=== PATIENT | male | born 1950 | race Caucasian/White ===

== ENCOUNTER 2017-07-14 11:27 | Inpatient (IN) ==
[2017-07-14] MEDS ORDERED: SODIUM CHLORIDE 0.9% 1,000 ML IV STA (11:54)
[2017-07-14 12:50] LABS: Basophils # 0.1 10*3/uL (0.0-0.2); Basophils % 0.8 % (0.0-0.8); Eosinophils # 0.3 10*3/uL (0.0-0.87); Eosinophils % 3.1 % (0.00-10.9); Hematocrit 39.4 VOL% (42.0-52.0); Hemoglobin 13.2 GM/DL (14.0-18.0); Immature Granulocytes % 0.5 %; Immature Granulocytes Absolute 0.05 #; Lymphocytes # 1.8 10*3/uL (1.4-4.0); Lymphocytes % 15.9 % (21.2-54.2); Mean Corpuscular HGB Conc 33.5 GM/DL (32-36); Mean Corpuscular Hemoglobin 33 PG (27-34); Mean Corpuscular Volume 97.5 FL (87-102); Mean Platelet Volume 9.2 FL (9.6-12.0); Monocytes % 8.6 % (1.7-12.7); Neutrophils # 7.9 10*3/uL (1.4-7.4); Neutrophils % 71.1 % (38.7-73.9); Platelet Count 261 T/CUMM (130-400); Red Blood Count 4.04 MC/CUMM (3.8-5.5); Red Cell Distribution Width 13.9 % (9.3-17.3); White Blood Count 11.1 T/CUMM (4-12)
[2017-07-14 13:03] LABS: INR 1.1; PT Patient Result 11.4 SECS; Partial Thromboplastin Time 26.8 SECS (0-40)
[2017-07-14 13:10] LABS: Apearance,Urine CLEAR (Clear); Bilirubin,Urine Negative (Negative); Blood, Urine Negative (Negative); Glucose,Urine (UA) Negative (Negative); Hyaline Casts,Urine 2 /LPF (0-3); Ketones,Urine Negative (Negative); Mucus,Urine Moderate /LPF (Occasional); Nitrite,Urine Negative (Negative); Protein,Urine Negative; RBC,Urine <1 /HPF (0-4); Squamous Epithelial Cell,Urine Occasional /HPF (0-10); Urine Color Amber (Yellow); Urine Specific Gravity 1.014 (1.001-1.035); WBC,Urine 1 /HPF (0-6)
[2017-07-14 13:26] LABS: Alanine Aminotransferase 18 U/L (16-61); Albumin 2.6 G/DL (3.4-5.0); Alkaline Phosphatase 127 U/L (45-117); Aspartate Amino Transferase 25 U/L (0-37); Blood Urea Nitrogen 7 MG/DL (7-18); Glucose 82 MG/DL (74-106); Osmolality,Calculated 277.3 MOS/KG (273-304); Potassium 3.2 MMOL/L (3.5-5.1); Sodium 141 MMOL/L (136-145); Total Protein 6.2 G/DL (6.4-8.3); Troponin I Only < 0.015 NG/ML (0.00-0.045)
[2017-07-14] MEDS ORDERED: THIAMINE 200 MG/2 ML VIAL IM STA (14:11)
[2017-07-14] MEDS ORDERED: THIAMINE 200 MG/2 ML VIAL ONE (14:21)
[2017-07-14 14:41] LABS: Ammonia 41 UMOL/L (11-32)
[2017-07-14] MEDS ORDERED: KETOROLAC 60 MG/2 ML VIAL IM ONE (15:13)
[2017-07-14] MEDS ORDERED: GLUCAGON 1 MG VIAL IM PRN (17:22)
[2017-07-14] MEDS ORDERED: DEXTROSE 50% 25 GM/50 ML VIAL IV PRN (17:22)
[2017-07-14] MEDS ORDERED: ONDANSETRON 4 MG/2 ML VIAL IV PRN (17:22)
[2017-07-14] MEDS ORDERED: ACETAMINOPHEN 325 MG TABLET PO PRN (17:22)
[2017-07-14] MEDS ORDERED: MECLIZINE 25 MG TABLET PO PRN (17:36)
[2017-07-14] MEDS: SODIUM CHLORIDE 0.9% 1,000 ML IV SCH (18:07)
[2017-07-14] MEDS: INSULIN LISPRO 100 UNIT/ML SUBCUT SCH ×2 (18:07→20:46)
[2017-07-14 18:17] LABS: Barbiturates Screen,Urine Negative (Negative); Benzodiazepines Screen,Urine Negative (Negative); Cannabinoid Screen,Urine Positive (Negative); Opiate Screen,Urine Negative (Negative); Phencyclidine Screen,Urine Negative (Negative)
[2017-07-14 19:06] LABS: Folate 6.1 NG/ML (5.4-24.0)
[2017-07-14] MEDS: DOCUSATE SODIUM 100 MG CAPSULE PO SCH (20:45)
[2017-07-14] MEDS: GABAPENTIN 300 MG CAPSULE PO SCH (20:45)
[2017-07-14] MEDS: FERROUS SULFATE 325 MG TABLET PO SCH (20:45)
[2017-07-14] MEDS ORDERED: POTASSIUM CHLORIDE 20 MEQ TABLET PO SCH (21:00)
[2017-07-15] MEDS: SODIUM CHLORIDE 0.9% 1,000 ML IV SCH ×3 (06:07→21:07)
[2017-07-15 06:59] LABS: Basophils # 0.1 10*3/uL (0.0-0.2); Basophils % 0.8 % (0.0-0.8); Eosinophils # 0.4 10*3/uL (0.0-0.87); Eosinophils % 4.8 % (0.00-10.9); Hematocrit 33.8 VOL% (42.0-52.0); Hemoglobin 11.5 GM/DL (14.0-18.0); Immature Granulocytes % 0.5 %; Immature Granulocytes Absolute 0.04 #; Lymphocytes # 1.7 10*3/uL (1.4-4.0); Lymphocytes % 21.7 % (21.2-54.2); Mean Corpuscular Hemoglobin 33 PG (27-34); Mean Corpuscular Volume 96.8 FL (87-102); Mean Platelet Volume 9.4 FL (9.6-12.0); Monocytes # 0.7 10*3/uL (0.11-0.8); Monocytes % 8.7 % (1.7-12.7); Neutrophils # 4.9 10*3/uL (1.4-7.4); Neutrophils % 63.5 % (38.7-73.9); Platelet Count 216 T/CUMM (130-400); Red Blood Count 3.49 MC/CUMM (3.8-5.5); Red Cell Distribution Width 13.9 % (9.3-17.3); White Blood Count 7.8 T/CUMM (4-12)
[2017-07-15 07:41] LABS: Albumin 2.2 G/DL (3.4-5.0); Bilirubin,Total 1.3 MG/DL (0.2-1.0); Calcium 8.1 MG/DL (8.5-10.1); Osmolality,Calculated 284.7 MOS/KG (273-304); Potassium 3.2 MMOL/L (3.5-5.1); Total Protein 4.9 G/DL (6.4-8.3)
[2017-07-15] MEDS: INSULIN LISPRO 100 UNIT/ML SUBCUT SCH ×4 (08:05→21:54)
[2017-07-15] MEDS: LOSARTAN/HCTZ 50-12.5 MG TABLET PO SCH (08:52)
[2017-07-15] MEDS: POTASSIUM CHLORIDE 20 MEQ TABLET PO SCH ×3 (08:52→21:08)
[2017-07-15] MEDS: CYANOCOBALAMIN 500 MCG TABLET PO SCH (08:52)
[2017-07-15] MEDS: CELECOXIB 200 MG CAPSULE PO SCH (08:52)
[2017-07-15] MEDS: GABAPENTIN 300 MG CAPSULE PO SCH ×4 (08:53→21:08)
[2017-07-15] MEDS: FERROUS SULFATE 325 MG TABLET PO SCH ×2 (08:53→21:08)
[2017-07-15] MEDS: ASPIRIN EC 81 MG TABLET PO SCH (08:53)
[2017-07-15] MEDS: CITALOPRAM 20 MG TABLET PO SCH (08:53)
[2017-07-15] MEDS: PANTOPRAZOLE 40 MG TABLET PO SCH (08:53)
[2017-07-15] MEDS: DOCUSATE SODIUM 100 MG CAPSULE PO SCH ×2 (08:53→21:08)
[2017-07-15] MEDS: SIMVASTATIN 40 MG TABLET PO SCH (08:53)
[2017-07-15] MEDS ORDERED: NON-FORMULARY MEDICATION (Esomeprazole Magnesium [Esomeprazole] 40 MG) PO SCH (09:00)
[2017-07-15 09:38] LABS: INR 1.1; PT Patient Result 11.3 SECS; Partial Thromboplastin Time 26.4 SECS (0-40)
[2017-07-15] MEDS: POTASSIUM CHLORIDE 20 MEQ TABLET PO PRN ×3 (15:13→21:08)
[2017-07-16] MEDS: SODIUM CHLORIDE 0.9% 1,000 ML IV SCH ×4 (06:08→18:23)
[2017-07-16 07:03] LABS: Basophils # 0.1 10*3/uL (0.0-0.2); Basophils % 0.8 % (0.0-0.8); Eosinophils # 0.3 10*3/uL (0.0-0.87); Eosinophils % 3.6 % (0.00-10.9); Hematocrit 36.6 VOL% (42.0-52.0); Hemoglobin 12.1 GM/DL (14.0-18.0); Immature Granulocytes % 0.5 %; Immature Granulocytes Absolute 0.04 #; Lymphocytes # 1.5 10*3/uL (1.4-4.0); Lymphocytes % 17.4 % (21.2-54.2); Mean Corpuscular HGB Conc 33.1 GM/DL (32-36); Mean Corpuscular Hemoglobin 33 PG (27-34); Mean Corpuscular Volume 99.7 FL (87-102); Mean Platelet Volume 9.1 FL (9.6-12.0); Monocytes # 0.7 10*3/uL (0.11-0.8); Monocytes % 7.5 % (1.7-12.7); Neutrophils # 6.1 10*3/uL (1.4-7.4); Neutrophils % 70.2 % (38.7-73.9); Platelet Count 241 T/CUMM (130-400); Red Blood Count 3.67 MC/CUMM (3.8-5.5); Red Cell Distribution Width 13.9 % (9.3-17.3); White Blood Count 8.7 T/CUMM (4-12)
[2017-07-16 07:38] LABS: Calcium 8.7 MG/DL (8.5-10.1); Osmolality,Calculated 285.6 MOS/KG (273-304); Potassium 4.2 MMOL/L (3.5-5.1)
[2017-07-16] MEDS: INSULIN LISPRO 100 UNIT/ML SUBCUT SCH ×4 (08:32→20:32)
[2017-07-16] MEDS: GABAPENTIN 300 MG CAPSULE PO SCH ×4 (10:07→20:27)
[2017-07-16] MEDS: SIMVASTATIN 40 MG TABLET PO SCH (10:07)
[2017-07-16] MEDS: ASPIRIN EC 81 MG TABLET PO SCH (10:07)
[2017-07-16] MEDS: POTASSIUM CHLORIDE 20 MEQ TABLET PO SCH ×3 (10:07→20:26)
[2017-07-16] MEDS: LOSARTAN/HCTZ 50-12.5 MG TABLET PO SCH (10:07)
[2017-07-16] MEDS: CITALOPRAM 20 MG TABLET PO SCH (10:07)
[2017-07-16] MEDS: FERROUS SULFATE 325 MG TABLET PO SCH ×2 (10:07→20:26)
[2017-07-16] MEDS: CELECOXIB 200 MG CAPSULE PO SCH (10:08)
[2017-07-16] MEDS: CYANOCOBALAMIN 500 MCG TABLET PO SCH (10:08)
[2017-07-16] MEDS: DOCUSATE SODIUM 100 MG CAPSULE PO SCH ×2 (10:08→20:26)
[2017-07-16] MEDS: PANTOPRAZOLE 40 MG TABLET PO SCH (10:08)
[2017-07-16] MEDS: LACTULOSE 20 GM/30 ML UDCUP PO SCH (20:27)
[2017-07-17] MEDS: SODIUM CHLORIDE 0.9% 1,000 ML IV SCH ×3 (03:01→17:50)
[2017-07-17 06:29] LABS: % Iron Saturation 34.9 % (18-50); Ferritin 81.7 ng/ml (26-388)
[2017-07-17] MEDS: INSULIN LISPRO 100 UNIT/ML SUBCUT SCH ×3 (10:55→17:26)
[2017-07-17] MEDS: CITALOPRAM 20 MG TABLET PO SCH (10:56)
[2017-07-17] MEDS: CELECOXIB 200 MG CAPSULE PO SCH (10:56)
[2017-07-17] MEDS: LACTULOSE 20 GM/30 ML UDCUP PO SCH ×2 (10:56→21:50)
[2017-07-17] MEDS: ASPIRIN EC 81 MG TABLET PO SCH (10:56)
[2017-07-17] MEDS: FERROUS SULFATE 325 MG TABLET PO SCH ×2 (10:57→21:48)
[2017-07-17] MEDS: SIMVASTATIN 40 MG TABLET PO SCH (10:57)
[2017-07-17] MEDS: PANTOPRAZOLE 40 MG TABLET PO SCH (10:57)
[2017-07-17] MEDS: CYANOCOBALAMIN 500 MCG TABLET PO SCH (10:57)
[2017-07-17] MEDS: GABAPENTIN 300 MG CAPSULE PO SCH ×4 (10:57→21:49)
[2017-07-17] MEDS: POTASSIUM CHLORIDE 20 MEQ TABLET PO SCH ×3 (10:57→21:48)
[2017-07-17] MEDS: LOSARTAN/HCTZ 50-12.5 MG TABLET PO SCH (10:58)
[2017-07-17] MEDS: DOCUSATE SODIUM 100 MG CAPSULE PO SCH ×2 (11:01→21:49)
[2017-07-18] MEDS: SODIUM CHLORIDE 0.9% 1,000 ML IV SCH (04:49)
[2017-07-18] MEDS: INSULIN LISPRO 100 UNIT/ML SUBCUT SCH ×2 (05:14→08:29)
[2017-07-18] MEDS: LACTULOSE 20 GM/30 ML UDCUP PO SCH (09:00)
[2017-07-18] MEDS: CYANOCOBALAMIN 500 MCG TABLET PO SCH (09:00)
[2017-07-18] MEDS: DOCUSATE SODIUM 100 MG CAPSULE PO SCH (09:00)
[2017-07-18] MEDS: GABAPENTIN 300 MG CAPSULE PO SCH (09:00)
[2017-07-18] MEDS: POTASSIUM CHLORIDE 20 MEQ TABLET PO SCH (09:00)
[2017-07-18] MEDS: ASPIRIN EC 81 MG TABLET PO SCH (09:00)
[2017-07-18] MEDS: CITALOPRAM 20 MG TABLET PO SCH (09:00)
[2017-07-18] MEDS: LOSARTAN/HCTZ 50-12.5 MG TABLET PO SCH (09:01)
[2017-07-18] MEDS: CELECOXIB 200 MG CAPSULE PO SCH (09:01)
[2017-07-18] MEDS: FERROUS SULFATE 325 MG TABLET PO SCH (09:01)
[2017-07-18] MEDS: SIMVASTATIN 40 MG TABLET PO SCH (09:01)
[2017-07-18] MEDS: PANTOPRAZOLE 40 MG TABLET PO SCH (09:01)
[2017-07-18 11:52] VITALS: BP 122/74
[2017-07-18 12:02] LABS: Hepatitis A Ab IgM Quant < 0.02 Index; Hepatitis A Ab IgM Result Negative (Negative); Hepatitis B Core IgM Result Negative (Negative); Hepatitis B Surface Ag Quant < 0.10 Index; Hepatitis B Surface Ag Result Negative (Negative); Hepatitis C Virus Ab Quant 0.02 Index; Hepatitis C Virus Ab Result Negative (Negative)
== END 2017-07-18 12:20 | disposition swing bed (61) | DRG 443 ==
LOC: N.EDINP 11:27 → N.ED 11:27 → INTOOBSV 14:43 → OBSVTOIN 14:43 → N.5E 17:21
PROVIDERS: ADMIT Internal Medicine; ATTEND Internal Medicine